=== PATIENT | female | born 1930 | race Caucasian/White ===

== ENCOUNTER → 2016-08-11 | Outpatient (CLI) | payer MEDICARE ==
[~2016-08-11] MED LIST: CIPRO 500MG TA500 MG PO; COUMADIN 2.5MG2.5 MG PO; COUMADIN 5MG TAB5 MG PO; DRISDOL50000 IU PO; ESCITALOPRAM10 M1 PO; EXELON4.6 MG/24 TD; FAMOTIDINE 20MG20 MG PO; FUROSEMIDE 40MG40 M1 PO; JANUVIA50 M1 PO; JANUVIA50 MG PO; K-DUR 20MEQ TA20 MEQ PO; LASIX40 MG PO; LEVOFLOXACIN PO; LISINOPRIL 10MG10 MG NG; LISINOPRIL 10MG10 MG PO; LISINOPRIL 5MG T5 MG PO; LISINOPRIL10 MG PO; LORTAB 5/500 501 TAB PO; MACROBID 100MG100 MG PO; MACROBID100 M3 PO; MIRALAX(PO17 GM/1 PA PO; NAMENDA XR28 MG PO; NORVASC 5MG. TAB5 MG PO; PERCOCET 5/3251 EACH PO; PLAVIX75 MG PO; PRAVASTATIN 40M40 MG PO; PRAVASTATIN20 MG PO; RISPERDAL0.5 MG PO; SYNTHROID 0.00.05 MG PO; TRAMADOL 50MG T50 MG PO; TRAMADOL50 M1 PO; TYLENOL325 MG PO; VIMOVO 20 MG-501 TCP PO; VITAMIN D32000 IU PO; [UNRECOGNIZED DRUG - OTHER] PO
--- NOTE | 2016-08-11 12:50 | RADIOLOGY REPORT PS360 ---
HIP RT 2-3V W/PELVIS IF PERFOR HISTORY: Follow-up fracture S/P HIP REPLACMENT COMPARISON: 07/21/2016 FINDINGS: Status post ORIF right intertrochanteric fracture. Gamma now with long intramedullary dilip is present in good position. There remains medial displacement of the lesser trochanter with overlying callus formation. Mild osteoarthritic change of the hip. No orthopedic complication. IMPRESSION: Healing right intertrochanteric fracture status post ORIF
== END ==
LOC: RAD 09:51
DX: Z47.1 Aftercare following joint replacement surgery (principal)

== ENCOUNTER → 2016-12-29 | Outpatient (CLI) | payer MEDICARE, MEDICAID ==
[~2016-12-29] MED LIST changes: +TYLENOL WITH CO1 TA1 PO
--- NOTE | 2016-12-29 14:35 | RADIOLOGY REPORT PS360 ---
WRIST-3 VIEWS-LT HISTORY: Follow-up fracture HEALING OF LEFT DISTAL RADIUS FX ORDERING PHYSICIAN: BILLY DENIS MD PATIENT AGE: 86 years COMPARISON: 12/16/2016 FINDINGS: Status post ORIF distal radial fracture with negative bone plate and multiple screws present. Study is obtained through cast. The fracture line is not well delineated. There is good alignment. There is a nondisplaced transverse fracture at the base of the ulnar styloid process unchanged. IMPRESSION: Good alignment status post ORIF distal radial fracture and nondisplaced ulnar styloid fracture
== END ==
LOC: RAD 11:31
DX: S52.542D Smith's fracture of left radius, subsequent encounter for closed fracture with routine healing (principal)

== ENCOUNTER 2017-04-27 12:37 | Emergency (ER) | payer MEDICARE, MEDICAID ==
[~2017-04-27] VITALS: Ht 154.9 cm; Wt 59.0 kg
[~2017-04-27 12:37] MED LIST changes: +VOLTAREN100 GM TP
[2017-04-27] MEDS ORDERED: JANUVIA25 MG PO (13:13)
[2017-04-27 13:19] LABS: URINE BILIRUBIN - DIPSTICK NEGATIVE (NEG); URINE BLOOD 1+ (NEG)
[2017-04-27 13:31] LABS: HEMOGLOBIN 13.2 g/dL (12.2-16.2); LYMPH # 0.6 K/mm3 (0.7-4.5); LYMPH % 5.2 % (10-50.0)
[2017-04-27 13:31] LABS: URINE SQUAMOUS CELLS OCC #/hpf (0-5)
--- NOTE | 2017-04-27 14:10 | Emergency Room Report ---
History of Present Illness Time Seen by [id number] Presenting Problem in Triage Pt arrived:Wheelchair Presenting Problem:PER PT DAUGHTER PT HAS PAIN IN R HIP AND EMIL KNEES ALONG WITH PAIN IN EMIL ARMS. DAUGHTER STATES PT IS WEAKER THAN NORMAL, STATES THIS IS HOW PT ACTS WHEN SHE HAS A UTI. PT IS ALERT AND ORIENTED, CAN ANSWER ALL QUESTIONS APPROPRIATELY. 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 N Clinical Suspician of Infection? N Mental Status: 1 - Regular (Normal Baseline) Sepsis Risk:Low Sepsis Risk Have you (or family members/close friends) recently traveled outside the [place]? N If Yes, where/when: Have you had exposure to infectious disease within the past month? N TB? Other? Specify: Source patient, RN notes reviewed, family, RN/MD Exam Limitations no limitations Comment This 86-year-old lady brought into the emergency room by her daughter with generalized joint pain, for the past 3-4 days. Because of the pain the patient has been avoiding to get out of bed and being less ambulatory than usual. She has a history of diabetes, which according to her daughter is "diet- controlled", and her PCP has taken her off the Januvia, as her most recent blood sugar tests have been within normal limits. ALLERGIES Coded Allergies: Sulfa (Sulfonamide Antibiotics) (Intermediate, I-HIVES 12/16/16) aspirin (Intermediate, UPSET STOMACH 12/16/16) Home Medications Active Scripts Risperidone (Risperdal) 0.5 MG PO QHS #30 TAB Prov: 07/08/16 Acetaminophen (Tylenol) 650 MG PO Q6HP PRN MILD PAIN OR FEVER #60 TAB Prov: 07/08/16 Diclofenac Sodium (Voltaren) 4 GM TP QIDP PRN knee pain #100 GM Prov: 03/27/17 Reported Medications MEMANTINE HCL (Namenda XR) 28 MG PO DAILY #30 CAP Escitalopram Oxalate 10 MG PO DAILY #30 TAB Rivastigmine (Exelon) 4.6 MG TD DAILY PRAVASTATIN SODIUM (Pravastatin Sodium) 40 MG PO DAILY Furosemide 40 MG PO PRN PRN FLUID #30 TAB Amlodipine Besylate (Norvasc) 1 TAB PO DAILY Levothyroxine Sodium (Synthroid 0.05MG) 0.05 MG PO DAILY LISINOPRIL (Lisinopril) 10 MG PO BID Sitagliptin Phosphate (Januvia 25MG) 25 MG PO DAILY-DM #90 History Medical History General CAD? No Angina: No NM: No Hypertension? Yes Hyperlipidemia? Yes CHF? No DVT? No PE? No COPD? No Asthma? No Anemia? No GERD? No Gastric ulcers? No GI Bleed? No Hernia? No Thyroid Problems? No Hypothyroidism? No CVA? No Seizures? No Diabetes? Yes Insulin Dependent: No Insulin Pump: No Home FSBS? No Renal Insuffiency? No End Stage Renal Disease? No UTI? Yes Stones? No BPH? No GB Disease: Yes Nephritic Syndrome? No Asplenia? No Hepatitis? No Sickle Cell Disease? No Arthritis? No Migraines? No Cataracts? Yes Glaucoma? No MRSA? No HIV? No TB? No Anxiety? No Depression? No Cancer? No More? No Immunization Hx DT/Tetanus 1-4 Years Ago Flu 2016-17FSN Pneumonia Received In Past Surgical Hx Previous Surgery?Y EXPLORATORY LAP TUBAL Hysterect Gallbladd L ROTATOR CUFF BILATERAL CATARACTS R HIP Family History Family Hx Diabetes Yes CAD Yes Hypertension Yes Hyperlipidemia Yes Cancer No TB No Social History Smoking Hx Smoker: Never Smoker Tobacco: No Alcohol Alcohol: No Review of Systems All Other Systems Reviewed and Negative Musculoskeletal joint pain, joint swelling Physical Exam Vital Signs Vital Signs Date Time Temp Pulse Resp B/P Pulse O2 O2 Flow FiO2 Ox Delivery Rate 04/27 1250 99.2 84 18 117/62 94 General Appearance normal appearance, WD/WN, no apparent distress, c/w mild dementia Respiratory Status Yes: trachea midline, chest symmetrical, non tender chest. No: respiratory distress. Lung Sounds bilateral: normal breath sounds, lungs clear. Cardiovascular normal exam, regular rate/rhythm, no peripheral edema, no gallop, no JVD, no murmur, no rub, normal peripheral pulses Gastrointestinal normal bowel sounds, normal exam, non tender, soft, no organomegaly Extremities PIP and DIP joints of the hands are swollen, tender, decreased range of motion due to pain. 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 No Comment Upon reevaluation patient appears medically stable, in no acute distress. Discussed benefits and risks of treating her arthritis with steroid versus and NSAIDs. Patient's age and comorbid factors I feel that steroids are better option, since we will be able to avoid any gastrointestinal side effects. Advised HER to call Dr. Perez's office and schedule a follow up appointment within a few days, next Monday or Monday. Her hyperglycemia noticed on her blood work collected today may be simply reactive to her pain and/or arthritis flareup. Dr. Perez will reevaluate patient a few days and determine if she needs to resume her Januvia, or not. Results/Orders Laboratory Tests 04/27/17 1315: Lactic Acid 1.3 04/27/17 1315: Creatine Kinase 24 L, CK-MB (CK-2) Rel Index 2.1, CK and CKMB Interp < 0.5, Troponin I < 0.02, ESR >120 H 04/27/17 1315: Sodium 136, Potassium 5.0, Chloride 101, Carbon Dioxide 24, BUN 24 H, Creatinine 0.9, Estimated Creat Clear 43 L, Estimated GFR (MDRD) 60, Glucose 267 H, Calcium 9.7, Total Bilirubin 0.6, AST 17, ALT 26, Alkaline Phosphatase 115, Total Protein 7.8, Albumin 3.3 L, Globulin 4.5 H, Albumin/Globulin Ratio 0.7 L, WBC 11.7 H, RBC 4.20, Hgb 13.2, Hct 40.1, MCV 95.3, RDW 12.5, Plt Count 220, MPV 8.0, Gran % 88.0 H, Gran # 10.3 H, Total Counted Pending, Lymphocytes % 5.2 L, Monocytes % 4.2, Eosinophils % 2.3, Basophils % 0.2, Neutrophils Pending, Lymphocytes (Manual) Pending, Lymphocytes # 0.6 L, Monocytes # 0.5, Eosinophils # 0.3, Basophils # 0.0, Platelet Estimate Pending, PUBS MCHC 33.0, MCH 31.5 H 04/27/17 1305: Urine Color YELLOW, Urine Appearance CLEAR, Urine pH 5.5, Ur Specific [place] >= 1.030, Urine Protein 1+ H, Urine Ketones NEGATIVE, Urine Blood 1+ H, Urine Nitrate NEGATIVE, Urine Bilirubin NEGATIVE, Urine Urobilinogen 0.2, Ur Leukocyte Esterase NEGATIVE, Urine RBC OCC, Urine WBC 3-5, Ur Squamous Epith Cells OCC, Urine Bacteria 1+, Urine Mucus OCC, Urine Glucose 2+ H Current Medication Orders Sig/Melony Start time Last Medication Dose Route Stop Time Status Admin Methylprednisolone 0 .STK-MED ONE 04/27 1414 DC Acetate IM Methylprednisolone 40 MG ONCE ONE 04/27 1400 DC 04/27 Acetate IM 04/27 1401 1416 Sodium Chloride 10 ML PRN PRN 04/27 1315 AC IV 04/28 1314 Orders Procedure Date/time Status C-REACTIVE PROTEIN 04/27 1338 Complete SED RATE 04/27 1337 Complete 12 LEAD EKG-RODERICK (INITIAL) 04/27 1330 Active ELECTROCARDIOGRAM REQUEST 04/27 1330 Active CARDIAC ENZYMES 04/27 1330 Complete DIFFERENTIAL-WBC 04/27 1315 Active IV SALINE LOCK 04/27 1314 Active CULTURE, BLOOD 04/27 1314 Active URINALYSIS/COMPLETE 04/27 1314 Complete LACTIC ACID 04/27 1314 Complete CBC WITH AUTO DIFF 04/27 1314 Active CHEM 12 PROFILE 04/27 1314 Complete 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 of ischemic chgs, no ectopy, normal QRS, normal PA, no EKG for comparison, non-spec. ST/Twave chgs, ST elevation, ST depression, LBBB, RBBB, ectopy, abnormal Q waves Departure Departure Time of Disposition 1407 Disposition DC Home or Self Care(routine) Clinical Impression Primary Impression: Osteoarthritis Qualifiers: Osteoarthritis location: unspecified site Osteoarthritis type: unspecified Qualified Code: M19.90 - Unspecified osteoarthritis, unspecified site Secondary Impressions: Hyperglycemia Condition STABLE Referrals Kyle Perez MD (Family): Today after leaving ER Please call Dr Perez's office today and schedule a follow up appointment for next Monday or Monday. Patient Instructions DI for Hyperglycemia -- Adult, DI for Osteoarthritis Additional Instructions Please follow-up with Dr. Perez within 3-5 days if no better. Your blood sugar may be higher than usual after receiving the steroid shot today , while in the ER. Discharge Counseling Counseled pt/family regarding diagnosis, test results, medications/RX, home care, follow up needs Comment Please follow-up with Dr. Perez within 3-5 days if no better. Your blood sugar may be higher than usual after receiving the steroid shot today , while in the ER. ED Critical Care Critical Care No at 1431
[2017-04-27 14:21] LABS: NEUTROPHILS 91 % (42-76)
[2017-04-27 14:33] VITALS: BP 110/54
== END 2017-04-27 14:30 | disposition home or self-care (01) ==
LOC: UTC 12:37 → ER 12:39
PROVIDERS: Emergency Medicine
DX: M16.0 Bilateral primary osteoarthritis of hip (principal); M17.0 Bilateral primary osteoarthritis of knee; I10 Essential (primary) hypertension; E11.9 Type 2 diabetes mellitus without complications
CPT/HCPCS: J1030

== ENCOUNTER 2017-04-30 23:31 | Inpatient (IN) | payer MEDICARE, MEDICAID ==
[~2017-04-30] VITALS: Ht 154.9 cm; Wt 63.5 kg
[~2017-04-30 23:31] MED LIST changes: +JANUVIA25 MG PO
[2017-05-01] VITALS (9 sets, daily range): BP systolic 119–146; BP diastolic 62–87
--- NOTE | 2017-05-01 00:28 | Emergency Room Report ---
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 N Clinical Suspician of Infection? N Mental Status: 2 - Mildly Altered Sepsis Risk:Possible Sepsis Risk Have you (or family members/close friends) recently traveled outside the [place]? N If Yes, where/when: Have you had exposure to infectious disease within the past month? N TB? Other? Specify: Source RN notes reviewed Exam Limitations no limitations Comment This is an 87-year-old female patient arriving to the emergency room by EMS with a chief complaint of altered mental status. The patient was seen here just a few days ago, last week , with body aches and several joint aches. She received a Depo-Medrol shot and was discharged home. She is returning today with confusion, hallucinations. Daughter has been checking her sugar at home which has been in the 300s. She is a nondiabetic, currently off januvia, as PCP felt she is "diet-controlled". ALLERGIES Coded Allergies: Sulfa (Sulfonamide Antibiotics) (Intermediate, I-HIVES 12/16/16) aspirin (Intermediate, UPSET STOMACH 12/16/16) Home Medications Active Scripts Risperidone (Risperdal) 0.5 MG PO QHS #30 TAB Prov: 07/08/16 Acetaminophen (Tylenol) 650 MG PO Q6HP PRN MILD PAIN OR FEVER #60 TAB Prov: 07/08/16 Diclofenac Sodium (Voltaren) 4 GM TP QIDP PRN KNEE PAIN #100 GM Prov: 03/27/17 Reported Medications MEMANTINE HCL (Namenda XR) 28 MG PO DAILY #30 CAP Escitalopram Oxalate 10 MG PO DAILY #30 TAB Rivastigmine (Exelon) 4.6 MG TD DAILY Amlodipine Besylate (Norvasc) 5 MG PO DAILY POTASSIUM CHL (Potassium Chloride) 20 MEQ PO BID PRAVASTATIN SODIUM (Pravastatin Sodium) 40 MG PO DAILY Furosemide 40 MG PO PRN PRN FLUID #30 TAB Levothyroxine Sodium (Synthroid 0.05MG) 0.05 MG PO DAILY LISINOPRIL (Lisinopril) 10 MG PO BID Sitagliptin Phosphate (Januvia 25MG) 25 MG PO DAILY-DM #90 History Medical History General CAD? No Angina: No [place]: No Hypertension? Yes Hyperlipidemia? Yes CHF? No DVT? No PE? No COPD? No Asthma? No Anemia? No GERD? No Gastric ulcers? No GI Bleed? No Hernia? No Thyroid Problems? No Hypothyroidism? No CVA? No Seizures? No Diabetes? Yes Insulin Dependent: No Insulin Pump: No Home FSBS? No Renal Insuffiency? No End Stage Renal Disease? No UTI? Yes Stones? No BPH? No GB Disease: Yes Nephritic Syndrome? No Asplenia? No Hepatitis? No Sickle Cell Disease? No Arthritis? No Migraines? No Cataracts? Yes Glaucoma? No MRSA? No HIV? No TB? No Anxiety? No Depression? No Cancer? No More? No Immunization Hx Ped.Immunizations UTD Yes DT/Tetanus 1-4 Years Ago Flu 2015-FSN Pneumonia Received In Past Surgical Hx Previous Surgery?Y EXPLORATORY LAP TUBAL Hysterect Gallbladd L ROTATOR CUFF BILATERAL CATARACTS R HIP LEFT WRIST FX REPAIR Family History Family Hx Diabetes Yes CAD Yes Hypertension Yes Hyperlipidemia Yes Cancer No TB No Social History Smoking Hx Smoker: Never Smoker Tobacco: No Are you/the child exposed to second-hand smoke: No Alcohol Alcohol: No Review of Systems All Other Systems Reviewed and Negative Psychiatric/Neurological weakness, other (confusion) Physical Exam Vital Signs Vital Signs Date Time Temp Pulse Resp B/P Pulse O2 O2 Flow FiO2 Ox Delivery Rate 05/01 0615 98.3 81 18 139/71 94 ROOM AIR 05/01 0558 97.9 86 20 137/77 92 05/01 0546 100.2 86 20 137/77 92 05/01 0335 100.2 86 20 154/76 92 05/01 0241 88 20 154/81 93 05/01 0131 100.2 85 18 160/80 92 05/01 0038 98.8 86 20 145/73 94 05/01 0001 101.1 87 20 93 General Appearance normal appearance, WD/WN, no apparent distress, confused, hallucinating Neck normal inspection, non-tender, supple, full range of motion Respiratory Status Yes: trachea midline, chest symmetrical, non tender chest. No: respiratory distress. Lung Sounds bilateral: normal breath sounds, lungs clear. 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 No Comment Case discussed with Dr. Perez, who is the patient's presentation and findings, agreeable with hospitalization at this point. Will start patient on IV antibiotics, and cover her with a regular insulin per sliding scale. Results/Orders Laboratory Tests 05/01/17 0338: POC Glucose 334 *H 05/01/17 0334: Lactic Acid Cancelled 05/01/17 0215: Lactic Acid 1.1, Urine Color YELLOW, Urine Appearance CLEAR, Urine pH 5.5, Ur Specific [place] 1.025, Urine Protein 1+ H, Urine Ketones TRACE H, Urine Blood TRACE-INTACT, Urine Nitrate NEGATIVE, Urine Bilirubin NEGATIVE, Urine Urobilinogen 0.2, Ur Leukocyte Esterase NEGATIVE, Urine RBC 3-5, Urine WBC 5-10, Urine Renal Cells 5-10, Urine Bacteria 4+, Urine Glucose 2+ H 05/01/17 0110: Sodium 135 L, Potassium 4.6, Chloride 102, Carbon Dioxide 25, BUN 29 H, Creatinine 0.9, Estimated Creat Clear 43 L, Estimated GFR (MDRD) 60, Glucose 337 H, Calcium 9.8, Total Bilirubin 0.9, AST 31, ALT 42, Alkaline Phosphatase 185 H, Total Protein 7.5, Albumin 2.3 L, Globulin 5.2 H, Albumin/Globulin Ratio 0.4 L, WBC 13.3 H, RBC 3.62 L, Hgb 11.4 L, Hct 35.9 L, MCV 99.0 H, RDW 12.6, Plt Count 269, MPV 8.4, Gran % 91.2 H, Gran # 12.1 H, Total Counted 100, Lymphocytes % 3.5 L, Monocytes % 3.8, Eosinophils % 1.3, Basophils % 0.2, Neutrophils 90 H, Band Neutrophils 5, Lymphocytes (Manual) 5 L, Lymphocytes # 0.5 L, Monocytes # 0.5, Eosinophils # 0.2, Basophils # 0.0, Hypersegmented Polys FEW, Platelet Estimate NORMAL, Hypochromasia 1+, Macrocytosis 1+, Rouleaux 2+, PUBS MCHC 31.8, MCH 31.5 H Current Medication Orders Sig/Melony Start time Last Medication Dose Route Stop Time Status Admin Azithromycin 500 MG 2100 05/01 2100 AC Sodium Chloride 250 ML IV Ceftriaxone Sodium 1 GM 1300 05/01 1300 AC Sodium Chloride 50 ML IV Diagnostic Test (Pha) 1 EACH W/MEALS&HS 05/01 0700 AC 05/01 FS 06/30 0659 0711 Insulin Human [rDNA See Dose W/MEALS&HS 05/01 07 DC origin] Insts (1) SC Azithromycin 500 MG ONCE ONE 05/01 0415 DC 05/01 Sodium Chloride 250 ML IV 05/01 0514 0536 Ceftriaxone Sodium 1 GM ONCE ONE 05/01 0415 DC 05/01 Sodium Chloride 50 ML IV 05/01 0444 0523 Insulin Human Regular 2 UNITS ONCE ONE 05/01 0400 DC 05/01 IVP 05/01 0401 0520 Acetaminophen 0 .STK-MED ONE 05/01 0246 DC PO Acetaminophen 0 .STK-MED ONE 05/01 0245 DC PO Acetaminophen 1,000 MG ONCE ONE 05/01 0145 DC 05/01 PO 05/01 0146 0200 Dose Instructions: (1)Insulin Human [rDNA origin]: SEE ADMIN CRITERIA FOR LOW INTENSITY SS Orders Procedure Date/time Status DIET-2000 CALORIE ADA 05/01 B Active Decision to admit 05/01 0415 Active FINGERSTICK BLOOD SUGAR 05/01 0338 Complete FSBS REQUEST BY CARE AREA 05/01 0334 Active CHEM 12 PROFILE 05/01 0329 Complete CULTURE, URINE 05/01 0215 Active CULTURE, BLOOD 05/01 0143 Active LACTIC ACID 05/01 0143 Complete DIFFERENTIAL-WBC 05/[address] HEAD REQ 05/01 0028 Active URINARY CATHETER INSERT 05/01 0028 Active CBC WITH AUTO DIFF 05/01 0028 Complete URINALYSIS/COMPLETE 05/01 0027 Complete ADMIT PATIENT 05/01 UNK Active PULSE OXIMETRY REQUEST 05/01 UNK Active VITAL SIGNS 05/01 UNK Active 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 of ischemic chgs, no ectopy, normal QRS, normal VT, normal EKG, no EKG for comparison, non-spec. ST/Twave chgs, ST elevation, ST depression, LBBB, RBBB, ectopy, abnormal Q waves XRAY/CT/US XRAY/CT/US 1 XRAY chest XR interpretation by reviewed by me Xray Results abnormal, normal heart size, normal lung inflation cameron Comment RIGHT lower lung infiltrate XRAY/CT/US [address] interpretation by discussed w/radiologist CT Results no fracture seen, no ICH, see radiologist's report from virtual radiology Departure Departure Time of Disposition 0411 Disposition Still a Patient Clinical Impression Primary Impression: Change in mental status Secondary Impressions: Pneumonia Condition STABLE ED Critical Care Critical Care Yes Time spent 30-74 min Vital system(s) involved: Central Nervous System I was present at bedside for Coordinating pt's care, Interpreting EKGs/Strips , During my initial exam, Reviewing lab results, Reviewing old records, Discussing pt condition, For re-examinations, Examining radiographs If Critical Care minutes are documented, the time involved in the performance of seperately reportable procedures was not counted toward critical care time documented. I directly delivered medical care to this critically ill and/or injured patient. Timely evaluation and treatment was necessary to address the significant organ system(s) dysfunction present in this patient. at 1008
[2017-05-01 01:15] LABS: LYMPH # 0.5 K/mm3 (0.7-4.5); LYMPH % 3.5 % (10-50.0)
[2017-05-01 01:19] LABS: HEMOGLOBIN 11.4 g/dL (12.2-16.2)
[2017-05-01 01:35] LABS: NEUTROPHILS 90 % (42-76)
[2017-05-01 02:16] LABS: URINE BILIRUBIN - DIPSTICK NEGATIVE (NEG); URINE BLOOD TRACE-INTACT (NEG)
--- NOTE | 2017-05-01 07:26 | RADIOLOGY REPORT PS360 ---
CT HEAD WITHOUT CONTRAST CT BONE WINDOWS included ORDERING PHYSICIAN : Gigi Almanza MD PATIENT AGE: 87 years GENDER: Female PROCEDURE: Routine axial images headwithout contrast. Brain & bone windows HISTORY: AMS COMPARISON: Previous CT head - without contrast. FINDINGS: No significant change since 2013. Prominent chronic small vessel deep white matter of low-density ischemic/gliotic changes are seen at the periventricular and subcortical deep white matter regions of the cerebral hemispheres bilateral.. Similar to previous study. No territorial infarct is evident. There is associated diffuse cerebral atrophy. On no subdural collections. No mass lesion. The posterior fossa appears stable and satisfactory. -With calcification at the internal carotid arteries bilaterally. Falx calcification anteriorly again noted and unchanged. No skull lesion. Skull intact. Generous thickness. Minimal inhomogeneous soft tissue density at throughout the small left sphenoid inhomogeneous mucoid material. Less likely fungal elements. The remainder of the partially visualized paranasal sinuses are fairly clear with only borderline mucosal thickening at ethmoid air cells... Mastoid air cells, middle ear & IACs are unremarkable. IMPRESSION: No acute intracranial findings. No significant change since December 2013. No hemorrhage. No territorial infarct. Prominent Chronic small vessel deep white matter ischemic changes cerebral hemispheres bilaterally again noted
--- NOTE | 2017-05-01 07:33 | RADIOLOGY REPORT PS360 ---
CHEST-PORTABLE HISTORY: fever, coughfever, cough. Patient Age: 87 years: Female Ordering Physician: Kyle Perez MD TECHNIQUE: AP portable upright chest. COMPARISON : Previous chest film 12/12/2016 as well as November [address] chest March 2015 FINDINGS Poor inspiration particularly compared to previous 2008 film. This accentuates lung markings bilaterally. The diaphragm is only down to the anterior fourth rib on right. . Right lung. There is some linear atelectasis towards the right base with prominent markings right infrahilar region. Most likely atelectasis but difficult to exclude early infiltrate. Left lung: there is subtle additional density projects over the anterior fourth rib and likely atelectasis but difficult to exclude scant infiltrate. The heart is upper normal in size with sameer and mediastinal structures satisfactory. The before meals projection of accentuates the mediastinum particularly the right paratracheal region appears slightly generous but this is most likely due to tortuous innominate vessel similar previous chest film from 2008 [address] a CT chest from 03/15/2015. Left shoulder replacements again noted. Chest wall otherwise unremarkable. IMPRESSION: Poor aspiration crowds markings and limits the study. Bibasilar atelectasis most likely accounts for the mildly accentuated markings at lung bases and particularly right infrahilar area. However Difficult to exclude early infiltrate in these areas If respiratory symptoms progress consider follow-up 2 view CXR
--- NOTE | 2017-05-01 07:33 | PHARMACY CLINIC NOTE ---
Patient Demographics Patient Demographics Admission date: 05/01/17 Date: 05/01/17 Time: 0733 Allergies Coded Allergies: Sulfa (Sulfonamide Antibiotics) (Intermediate, I-HIVES 12/16/16) aspirin (Intermediate, UPSET STOMACH 12/16/16) HEIGHT- FT: 5 IN: 1.00 K.717 VTE General Information Labs: Laboratory Tests 05/01 0110 Hematology Hgb (12.2 - 16.2 g/dL) 11.4 L Hct (37.0 - 47.0 %) 35.9 L Plt Count (142 - 424 K/mm3) 269 Disclaimer The following section includes nursing documentation that has been pulled in for pharmacy review. Patient's VTE score: 4 Patient's VTE Risk: LOW RISK Clinical trial participant? No VTE prophylaxis NQF [id number] VTE prophylaxis ordered? Yes Type of prophylaxis/treatment: WILLIAMS at 0733
--- NOTE | 2017-05-01 07:54 | HISTORY AND PHYSICAL REPORT ---
Demographics: Admit date: 05/01/17 Chief complaint: Mental status change/fever PRIMARY DIAGNOSIS: AMS, PNEUMONIA Allergies: Coded Allergies: Sulfa (Sulfonamide Antibiotics) (Intermediate, I-HIVES 12/16/16) aspirin (Intermediate, UPSET STOMACH 12/16/16) History of present illness: History of present illness: 87-year-old white female with history of multi-vascular dementia with behavioral disturbances who's been well managed at home who over the past 3 or 4 days has had increasing mental status changes and some confusion with some aberrant behavior with a cough and fever. Came to the emergency department. Noted to be significantly hyperglycemic and have infiltrates on chest x-ray. Admitted to hospital for IV antibiotics forpneumonia. Past medical history: Family HX Diabetes Yes CAD Yes Hypertension Yes Hyperlipidemia Yes Cancer No TB No Immunization HX Ped.Immunizations UTD Yes DT/Tetanus 1-4 Years Ago Flu 2015-FSN Pneumonia Received In Past TB Test in last year No General CAD? No Angina: No PR: No Hypertension? Yes Hyperlipidemia? Yes CHF? No DVT? No PE? No COPD? No Asthma? No Anemia? No GERD? No Gastric ulcers? Yes GI Bleed? No Hernia? No Thyroid Problems? No Hypothyroidism? No CVA? No Seizures? No Diabetes? Yes Insulin Dependent: No Insulin Pump: No Home FSBS? No Renal Insuffiency? No UTI? Yes Stones? No BPH? No GB Disease: Yes Nephritic Syndrome? No Asplenia? No Hepatitis? No Sickle Cell Disease? No Arthritis? Yes Migraines? Yes Cataracts? Yes Glaucoma? No MRSA? No HIV? No TB? No Anxiety? No Depression? Yes Cancer? No More? Yes Additional hx: TIA Past Surgical HX Previous Surgery?Y EXPLORATORY LAP TUBAL Hysterect Gallbladd L ROTATOR CUFF BILATERAL CATARACTS R HIP LEFT WRIST FX REPAIR Current home meds: Active Scripts Risperidone (Risperdal) 0.5 MG PO QHS #30 TAB Prov: 07/08/16 Acetaminophen (Tylenol) 650 MG PO Q6HP PRN MILD PAIN OR FEVER #60 TAB Prov: 07/08/16 Diclofenac Sodium (Voltaren) 4 GM TP QIDP PRN knee pain #100 GM Prov: 03/27/17 Reported Medications MEMANTINE HCL (Namenda XR) 28 MG PO DAILY #30 CAP Escitalopram Oxalate 10 MG PO DAILY #30 TAB Rivastigmine (Exelon) 4.6 MG TD DAILY PRAVASTATIN SODIUM (Pravastatin Sodium) 40 MG PO DAILY Furosemide 40 MG PO PRN PRN FLUID #30 TAB Amlodipine Besylate (Norvasc) 1 TAB PO DAILY Levothyroxine Sodium (Synthroid 0.05MG) 0.05 MG PO DAILY LISINOPRIL (Lisinopril) 10 MG PO BID Sitagliptin Phosphate (Januvia 25MG) 25 MG PO DAILY-DM #90 Social Hx: Smoking HX Tobacco No Are you/the child exposed to second-hand smoke: No Alcohol Alcohol: No Hx of Drug Use Drug Use? No Patien't marital status is Patient's support system is excellent Comment: Lives with daughter in her residence Review of systems: Constitutional fever, malaise, weakness. Respiratory cough, shortness of breath. Cardiovascular No no symptoms reported Gastrointestinal/Abdominal nausea, poor appetite, poor fluid intake Genitourinary No: no symptoms reported. Musculoskeletal No: no symptoms reported. Neurological Yes: weakness. Exam: Lab data for last 24 hours: Laboratory Tests 05/01/17 0711: POC Glucose 451 *H 05/01/17 0338: POC Glucose 334 *H 05/01/17 0215: Lactic Acid 1.1, Urine Color YELLOW, Urine Appearance CLEAR, Urine pH 5.5, Ur Specific [place] 1.025, Urine Protein 1+ H, Urine Ketones TRACE H, Urine Blood TRACE-INTACT, Urine Nitrate NEGATIVE, Urine Bilirubin NEGATIVE, Urine Urobilinogen 0.2, Ur Leukocyte Esterase NEGATIVE, Urine RBC 3-5, Urine WBC 5-10, Urine Renal Cells 5-10, Urine Bacteria 4+, Urine Glucose 2+ H 05/01/17 0110: Sodium 135 L, Potassium 4.6, Chloride 102, Carbon Dioxide 25, BUN 29 H, Creatinine 0.9, Estimated Creat Clear 43 L, Estimated GFR (MDRD) 60, Glucose 337 H, Calcium 9.8, Total Bilirubin 0.9, AST 31, ALT 42, Alkaline Phosphatase 185 H, Total Protein 7.5, Albumin 2.3 L, Globulin 5.2 H, Albumin/Globulin Ratio 0.4 L, WBC 13.3 H, RBC 3.62 L, Hgb 11.4 L, Hct 35.9 L, MCV 99.0 H, RDW 12.6, Plt Count 269, MPV 8.4, Gran % 91.2 H, Gran # 12.1 H, Total Counted 100, Lymphocytes % 3.5 L, Monocytes % 3.8, Eosinophils % 1.3, Basophils % 0.2, Neutrophils 90 H, Band Neutrophils 5, Lymphocytes (Manual) 5 L, Lymphocytes # 0.5 L, Monocytes # 0.5, Eosinophils # 0.2, Basophils # 0.0, Hypersegmented Polys FEW, Platelet Estimate NORMAL, Hypochromasia 1+, Macrocytosis 1+, Rouleaux 2+, PUBS MCHC 31.8, MCH 31.5 H Microbiology 05/01 334 BLOOD: Anaerobic Blood Culture - CAN Cancelled: DUPLICATE ORDER 05/01 334 BLOOD: Aerobic Blood Culture - CAN Cancelled: DUPLICATE ORDER 05/01 334 BLOOD: Anaerobic Blood Culture - CAN Cancelled: DUPLICATE ORDER 05/01 334 BLOOD: Aerobic Blood Culture - CAN Cancelled: DUPLICATE ORDER 05/01 300 BLOOD: Anaerobic Blood Culture - RECD 05/01 300 BLOOD: Aerobic Blood Culture - RECD 05/01 030 BLOOD: Anaerobic Blood Culture - RECD 05/01 300 BLOOD: Aerobic Blood Culture - RECD 05/01 0215 URINE CATH: Urine Culture - RECD Admission vital signs: 1ST Vital Signs Result Date Time Pulse Ox 93 05/01 0001 Temp 101.1 05/01 0001 Pulse 87 05/01 0001 Resp 20 05/01 0001 B/P 145/73 05/01 0038 O2 Delivery ROOM AIR 05/01 0615 Additional information: Aged white female lying in bed, no respiratory distress noted. Equal lung excursion with rhonchi in both bases. Heart rate regular. Previously noted holosystolic murmur. Abdomen soft and nontender, good capillary refill. Minimally responsive to verbal commands. No focal neurologic deficit noted on observation. Plan: Problem List 1. Delirium 2. Senile dementia 3. Change in mental status 4. Pneumonia 5. Hyperglycemia Plan: Admit to hospital. IV antibiotics. Sliding scale insulin for hyperglycemia. No evidence of acidosis or serum ketones. Cautiously restart some of her home medications. at 0754
[2017-05-01] MEDS ORDERED: POTASSIUM CHLO20 ME2 PO (08:07)
[2017-05-02] VITALS (25 sets, daily range): BP systolic 99–151; BP diastolic 60–76
[2017-05-02 07:51] LABS: HEMOGLOBIN 10.8 g/dL (12.2-16.2)
[2017-05-02 07:52] LABS: LYMPH # 0.6 K/mm3 (0.7-4.5); LYMPH % 5.3 % (10-50.0)
--- NOTE | 2017-05-02 08:05 | ACUTE CARE PROGRESS NOTE (QUA) ---
Progress Notes Subjective Date 05/02/17 Time 0750 Note Patient is sleeping, awakens easily to light tough. Some improvement of mental status noted this morning. Alert and disoriented. Follows simple commands. 2/6 holosystolic murmur, no edema, pulses 2+. Rhonchi bilateral bases. Abdomen soft and non-tender Patient/family reports: no complaints Nursing reports: no complaints Objective Findings Last VS-Temp:99.6 B/P:151/72 Pulse:77 Resp:22 SaO2:94 ROOM AIR Last weight lbs:136 oz:1 K.717 Method:Bed Scales Reviewed: medications, vital signs, lab results, radiology report Assessment/Plan Problem List 1. Delirium 2. Senile dementia 3. Change in mental status 4. Pneumonia 5. Hyperglycemia Patient condition Improving Plan: continue current care This inpt stay is expected to cross 2 MNs from start of care Yes Comments: Continued to have some low grade temps through the night. WBC has improved, noted at 12 this morning. Mental status slowly improving. Continue IV antibiotics and duonebs. Will consider PT/OT consult later today. at 0806
[2017-05-02 09:54] LABS: NEUTROPHILS 89 % (42-76)
--- NOTE | 2017-05-02 13:38 | CONSULT NOTE ---
Standard Demographics Patient Demo Date of Consultation: 05/02/17 Referring Provider: Kyle Perez MD Reason for Consultation: A.fib with RVR PRIMARY DIAGNOSIS: AMS, PNEUMONIA Problem list Problem list: 1. Parkinson's 2. Dementia 3. DM, diet controlled 4. History of CHF many years ago 5. HTN 6. Hyperlipidemia 7. Hypothyroidism History of present illness: History of present illness: 87-year-old white female with history of multi-vascular dementia with behavioral disturbances who's been well managed at home who over the past 3 or 4 days has had increasing mental status changes and some confusion with some aberrant behavior with a cough and fever. Came to the emergency department. Noted to be significantly hyperglycemic and have infiltrates on chest x-ray. Admitted to hospital for IV antibiotics forpneumonia. The above per Dr. Perez Daughter is in the room and relates no complaint of chest pain or history of atrial fibrillation in the past. Remote history of treatment for congestive heart failure but no symptoms recently. Cardiology consulted for evaluation and recommendations regarding new onset atrial fibrillation with a rapid ventricular response today. Patient has been started on IV diltiazem. An additional bolus was given earlier today with mild improvement in heart rate. Past Medical History: General: Hypertension Yes CVA No Seizures No TB No COPD No Asthma No Diabetes Yes Insulin Dependent No Insulin Pump No Angina No DC No Hyperlipidemia Yes Urinary Yes Cancer No Rheumatic H.D. No Ulcers Yes MRSA No GB Disease Yes Other OSTEOPOROSIS Additional hx TIA Past Surgical HX: Previous Surgery?Y EXPLORATORY LAP TUBAL Hysterect Gallbladd L ROTATOR CUFF BILATERAL CATARACTS R HIP LEFT WRIST FX REPAIR Allergies Coded Allergies: Sulfa (Sulfonamide Antibiotics) (Intermediate, I-HIVES 12/16/16) aspirin (Intermediate, UPSET STOMACH 12/16/16) Home medications: Active Scripts Risperidone (Risperdal) 0.5 MG PO QHS #30 TAB Prov: 07/08/16 Acetaminophen (Tylenol) 650 MG PO Q6HP PRN MILD PAIN OR FEVER #60 TAB Prov: 07/08/16 Diclofenac Sodium (Voltaren) 4 GM TP QIDP PRN KNEE PAIN #100 GM Prov: 03/27/17 Reported Medications MEMANTINE HCL (Namenda XR) 28 MG PO DAILY #30 CAP Escitalopram Oxalate 10 MG PO DAILY #30 TAB Rivastigmine (Exelon) 4.6 MG TD DAILY Amlodipine Besylate (Norvasc) 5 MG PO DAILY POTASSIUM CHL (Potassium Chloride) 20 MEQ PO BID PRAVASTATIN SODIUM (Pravastatin Sodium) 40 MG PO DAILY Furosemide 40 MG PO PRN PRN FLUID #30 TAB Levothyroxine Sodium (Synthroid 0.05MG) 0.05 MG PO DAILY LISINOPRIL (Lisinopril) 10 MG PO BID Sitagliptin Phosphate (Januvia 25MG) 25 MG PO DAILY-DM #90 Current Medications: Current Medications Amlodipine Besylate 5 MG DAILY PO (CAN) Levothyroxine Sodium 0.05 MG DAILY PO Azithromycin 500 MG 2100 IV Sodium Chloride 250 ML Lisinopril 10 MG BID PO (CAN) Risperidone 0.5 MG QHS PO Digoxin 0.25 MG Q6 IV (UNV) Digoxin 0 .STK-MED ONE .ROUTE (DC) Ceftriaxone Sodium 1 GM 1300 IV Sodium Chloride 50 ML Diagnostic Test (Pha) 1 EACH W/MEALS&HS FS Insulin Human [rDNA origin] SEE ADMIN CRITERIA W/MEALS&HS SC Insulin Human [rDNA origin] 0 .STK-MED ONE SC (DC) Diltiazem HCl 15 MG ONCE ONE IV (DC) Diltiazem HCl 0 .STK-MED ONE IV (DC) Acetaminophen 650 MG Q6HP PRN PO Diltiazem HCl 10 MG ONCE ONE IV (DC) Diltiazem HCl 100 MG .Q20H IV (DC) Sodium Chloride 100 ML Diltiazem HCl 10 MG ONCE ONE IV (DC) Diltiazem HCl 100 MG .Q20H IV Sodium Chloride 100 ML Sodium Chloride 10 ML PRN PRN IV Diltiazem HCl 0 .STK-MED ONE IV (DC) Lisinopril 10 MG BID PO (DC) Lisinopril 0 .STK-MED ONE .ROUTE (DC) Acetaminophen 0 .STK-MED ONE PO (DC) Insulin Human [rDNA origin] 0 .STK-MED ONE SC (DC) Acetaminophen 650 MG Q6HP PRN PO (DC) Acetaminophen 0 .STK-MED ONE PO (DC) Azithromycin 500 MG 2100 IV Sodium Chloride 250 ML Risperidone 0.5 MG QHS PO (DC) Insulin Human [rDNA origin] 0 .STK-MED ONE SC (DC) Ceftriaxone Sodium 1 GM 1300 IV (DC) Sodium Chloride 50 ML Insulin Human [rDNA origin] SEE ADMIN CRITERIA W/MEALS&HS SC (DC) Amlodipine Besylate 5 MG DAILY PO (DC) Levothyroxine Sodium 0.05 MG DAILY PO (DC) Sodium Chloride 10 ML PRN PRN IV (DC) Diagnostic Test (Pha) 1 EACH W/MEALS&HS FS (DC) Immunization HX Ped.Immunizations UTD Yes DT/Tetanus 1-4 Years Flu 2015-FSN Pneumonia RECEIVED IN PAST TB Test in last year No Family history Family HX Family Hx Insignificant No Diabetes Yes CAD Yes Hypertension Yes Hyperlipidemia Yes Cancer No TB No Social Hx: Smoking HX Tobacco No Are you/the child exposed to second-hand smoke: No Alcohol Alcohol: No Hx of Drug Use Drug Use? No Review of systems: Constitutional see HPI. Respiratory cough. Cardiovascular palpitations Gastrointestinal/Abdominal No no symptoms reported Genitourinary No: no symptoms reported. Musculoskeletal No: no symptoms reported. Neurological Yes: see HPI. Exam: Admission Vital Signs: 1ST Vital Signs Result Date Time Pulse Ox 93 05/01 0001 Temp 101.1 05/01 0001 Pulse 87 05/01 0001 Resp 05/01 0001 B/P 145/73 05/01 0038 O2 Delivery ROOM AIR 05/01 0615 Last Vital Signs: Vital Signs Result Date Time B/P 125/68 05/02 1130 Pulse 136 05/02 1130 Pulse Ox 93 05/02 1130 O2 Delivery ROOM AIR 05/02 1130 Temp 99.9 05/02 1130 Resp 05/02 1130 Exam General appearance: patient is sleeping. Due to dementia she was not awakened for questioning. Cardiovascular: irregularly irregular, tachycardia Respiratory: poor effort with no appreciable rales or wheezing anteriorly. ABD: soft Extremities: no peripheral edema Neuro: patient is sleeping. Laboratory data: Laboratory Tests 05/02/17 1156: POC Glucose 238 H 05/02/17 0935: Creatine Kinase 8 L, CK-MB (CK-2) Rel Index 6.3 H, CK and CKMB Interp < 0.5, Troponin I < 0.02 05/02/17 0630: Sodium 138, Potassium 4.1, Chloride 101, Carbon Dioxide 26, BUN 29 H, Creatinine 0.8, Estimated Creat Clear 50, Estimated GFR (MDRD) 68, Glucose 243 H, Calcium 9.4, WBC 12.0 H, RBC 3.60 L, Hgb 10.8 L, Hct 33.9 L, MCV 94.2, RDW 13.1, Plt Count 258, Gran % 92.0 H, Gran # 11.0 H, Total Counted 100, Lymphocytes % 5.3 L, Monocytes % 2.7, Neutrophils 89 H, Lymphocytes (Manual) 2 L, Lymphocytes # 0.6 L, Monocytes (Manual) 7, Monocytes # 0.3, Eosinophils # ( Manual) 2, Platelet Estimate NORMAL, PUBS MCHC 31.9, MCH 30.0 05/01/17 2019: POC Glucose 303 *H 05/01/17 1701: POC Glucose 250 H 05/01/17 1144: POC Glucose 194 H 05/01/17 0711: POC Glucose 451 *H 05/01/17 0338: POC Glucose 334 *H 05/01/17 0215: Lactic Acid 1.1, Urine Color YELLOW, Urine Appearance CLEAR, Urine pH 5.5, Ur Specific [place] 1.025, Urine Protein 1+ H, Urine Ketones TRACE H, Urine Blood TRACE-INTACT, Urine Nitrate NEGATIVE, Urine Bilirubin NEGATIVE, Urine Urobilinogen 0.2, Ur Leukocyte Esterase NEGATIVE, Urine RBC 3-5, Urine WBC 5-10, Urine Renal Cells 5-10, Urine Bacteria 4+, Urine Glucose 2+ H 05/01/17 0110: Sodium 135 L, Potassium 4.6, Chloride 102, Carbon Dioxide 25, BUN 29 H, Creatinine 0.9, Estimated Creat Clear 43 L, Estimated GFR (MDRD) 60, Glucose 337 H, Calcium 9.8, Total Bilirubin 0.9, AST 31, ALT 42, Alkaline Phosphatase 185 H, Total Protein 7.5, Albumin 2.3 L, Globulin 5.2 H, Albumin/Globulin Ratio 0.4 L, WBC 13.3 H, RBC 3.62 L, Hgb 11.4 L, Hct 35.9 L, MCV 99.0 H, RDW 12.6, Plt Count 269, MPV 8.4, Gran % 91.2 H, Gran # 12.1 H, Total Counted 100, Lymphocytes % 3.5 L, Monocytes % 3.8, Eosinophils % 1.3, Basophils % 0.2, Neutrophils 90 H, Band Neutrophils 5, Lymphocytes (Manual) 5 L, Lymphocytes # 0.5 L, Monocytes # 0.5, Eosinophils # 0.2, Basophils # 0.0, Hypersegmented Polys FEW, Platelet Estimate NORMAL, Hypochromasia 1+, Macrocytosis 1+, Rouleaux 2+, PUBS MCHC 31.8, MCH 31.5 H Microbiology Date/Time Procedure - Status Source Growth 05/01 334 Anaerobic Blood Culture - CAN BLOOD Cancelled: DUPLICATE ORDER 05/01 334 Aerobic Blood Culture - CAN BLOOD Cancelled: DUPLICATE ORDER 05/01 334 Anaerobic Blood Culture - CAN BLOOD Cancelled: DUPLICATE ORDER 05/01 334 Aerobic Blood Culture - CAN BLOOD Cancelled: DUPLICATE ORDER 05/01 300 Anaerobic Blood Culture - RECD BLOOD 05/01 300 Aerobic Blood Culture - RECD BLOOD 05/01 300 Anaerobic Blood Culture - RECD BLOOD 05/01 300 Aerobic Blood Culture - RECD BLOOD 05/01 0215 Urine Culture - RES URINE CATH Plan: Assessment: 1. Atrial fibrillation, new onset with rapid ventricular response. Likely secondary to pneumonia but will check BNP to rule out recurrent congestive heart failure. Recommend continuing IV diltiazem. Will start IV digoxin. Recommend holding lisinopril to allow blood pressure to elevate to give more room for additional diltiazem as needed. Echocardiogram has been performed with preliminary report showing hyperdynamic function. 2. Dementia 3. Hypertension 4. Hyperlipidemia 5. Mild anemia Recommendations: See above. at [phone]
--- NOTE | 2017-05-02 20:51 | RADIOLOGY REPORT PS360 ---
PROCEDURE: 2-D M-mode and color Doppler study INDICATIONS FOR THE TEST: Chest pain COPD Heart Murmur Tobacco Smoking Palpitations Fatigue Syncope Edema HypertensionXDiabetes MellitusX Rheumatic Fever SOB RIVERA Obesity HyperlipidemiaX Family History HDX Additional History AF WITH RVR PATIENT INFORMATION HEIGHT: 61 WEIGHT:136 GENDER: Female B/P:145/73 2-D/M-MODE INTERPRETATION: 2-D MEASUREMENTS OBSERVED VALUES IN CMS Right Ventricular Dimension (RVDd) 1.9 Interventricular Septum (Thickness)(IVsd) 1.1 Left Ventricular Internal Dimensions(LVIDd) 2.8 Left Ventricular Posterior Wall (Thickness)(LVPWd) 1.0 Aortic Root 2.6 Aortic Cusp Separation 1.6 Left Atrial Dimensions (LAD) 4.6 2D 1.. Left atrium is mildly enlarged, left ventricle is normal size, there is borderline concentric left ventricular hypertrophy, visually estimated ejection fraction is over 65% with no obvious regional wall motion abnormality, endocardial surfaces are poorly visualized, throughout this study patient was in atrial fibrillation with rapid ventricular response. 2. The right atrium and right ventricle are normal size and contractility. 3. The aortic valve is thickened and calcified leaflet continue to display mobility. 4. The mitral valve has dense mitral calcification which extends into the anterior and posterior mitral leaflets. 5. The tricuspid valve is grossly normal. 6. The pulmonic valve is poorly visualized. 7. No significant pericardial effusion noted. DOPPLER INTERROGATION: Doppler interrogation of the aortic, mitral and tricuspid valve reveals presence of mild mitral and tricuspid regurgitation, tricuspid regurgitant jet velocity insufficient for calculation of the right ventricular systolic pressure. CONCLUSION: 1. Technically difficult study because of the patient's factor and poor acoustic windows 2. Mildly enlarged left atrium, normal left ventricular size, borderline concentric left ventricular hypertrophy, visually estimated ejection fraction over 65%, with no obvious regional wall motion abnormality, endocardial surfaces are poorly visualized, patient was in atrial fibrillation with rapid ventricular response throughout this study. 3. Thickened and calcified aortic valve without Doppler evidence of significant aortic stenosis or aortic insufficiency. 4. Mitral annular calcification, mild mitral and tricuspid regurgitation. 5. No significant pericardial effusion noted.
[2017-05-03] VITALS (16 sets, daily range): BP systolic 101–132; BP diastolic 55–82
[2017-05-03 06:05] LABS: HEMOGLOBIN 10.6 g/dL (12.2-16.2)
[2017-05-03 06:06] LABS: LYMPH # 0.7 K/mm3 (0.7-4.5); LYMPH % 5.3 % (10-50.0)
--- NOTE | 2017-05-03 07:57 | ACUTE CARE PROGRESS NOTE (QUA) ---
Progress Notes Subjective Date 05/03/17 Time 0754 Note Patient is more alert, ate some supper last night, this morning is sleeping. Events of yesterday reviewed vis--vis atrial fibrillation and now improved rate. About an hour ago patient transitioned back into normal sinus rhythm. On-call physician has stopped drip and ordered one dose of Cardizem by mouth. Patient's heart rate regular, some rhonchi in the chest. Abdomen soft, Edwards catheter draining clear yellow urine. No edema noted. Objective Findings Last VS-Temp:98.2 B/P:125/59 Pulse:67 Resp:16 SaO2:95 OXYGEN Last weight lbs:139 oz:6 K.219 Method:Bed Scales Assessment/Plan Problem List 1. Delirium 2. Senile dementia 3. Change in mental status 4. Pneumonia 5. Hyperglycemia 6. UTI (urinary tract infection) 7. Atrial fibrillation with rapid ventricular response Patient condition Improving Plan: continue current care, 1. Atrial fibrillation has now resolved. Continue by mouth Cardizem, 60 mg 3 times a day. Lisinopril has been discontinued. Continue low-dose digoxin. 2. Infectious disease issues-await urine culture results. Patient is improving based on fever curve and blood counts. 3. Weakness -PT/OT consult. Evaluate for therapy needs for transition to skilled care given her overall global weakness and decline with this illness episode. 4. Pneumonia. Improving. Continue plan as above. 5. I discussed with her daughter her CODE STATUS. Given her overall age, frailty and multiple comorbidities I think DNR status would be more appropriate and she agrees. This inpt stay is expected to cross 2 MNs from start of care Yes at 0756
--- NOTE | 2017-05-03 13:38 | ACUTE CARE PROGRESS NOTE (QUA) ---
Progress Notes Subjective Date 05/03/17 Time 1336 Note 87-year-old white female in bed in no acute distress. Heart rate is controlled. Telemetry reveals patient has returned to sinus rhythm overnight. Discussed anticoagulation with patient's daughter. She previously had been on Coumadin therapy which was discontinued at the time of her hip surgery. Patient does not have frequent falls. Nor has she had any gastrointestinal bleeding history per the daughter. Objective Findings Last VS-Temp:98.6 B/P:124/59 Pulse:80 Resp:16 SaO2:95 OXYGEN Last weight lbs:139 oz:6 K.219 Method:Bed Scales Exam General appearance: alert, awake, no acute distress Cardiovascular: regular rate & rhythm Respiratory: clear to auscultation Extremities: moves all, no peripheral edema Reviewed: medications, vital signs, lab results Assessment/Plan Problem List 1. Delirium 2. Senile dementia 3. Change in mental status 4. Pneumonia 5. Hyperglycemia 6. UTI (urinary tract infection) 7. Atrial fibrillation with rapid ventricular response Assessment/Plan: Currently in sinus rhythm on diltiazem and digoxin. CHADS-VASc score of 8 (age, female, previous CHF, diabetes, previous TIA/CVA, HTN) with previous coumadin use. Recommend restarting anticoagulation. Patient condition Stable Plan: continue current meds. Will discuss a/c with Dr. Perez to see if any reservations or known problems on coumadin in past. This inpt stay is expected to cross 2 MNs from start of care Yes at 1346
[2017-05-04] VITALS (12 sets, daily range): BP systolic 127–146; BP diastolic 61–70
[2017-05-04 06:35] LABS: HEMOGLOBIN 10.5 g/dL (12.2-16.2)
[2017-05-04 06:36] LABS: LYMPH # 0.7 K/mm3 (0.7-4.5); LYMPH % 5.5 % (10-50.0)
--- NOTE | 2017-05-04 07:30 | ACUTE CARE PROGRESS NOTE (QUA) ---
Progress Notes Subjective Date 05/04/17 Time 0728 Note 87 yo WF in bed asleep. Daughter states she talked in her sleep all night. Telemetry is sinus and controlled. Objective Findings Last VS-Temp:98.2 B/P:130/67 Pulse:84 Resp:15 SaO2:94 ROOM AIR Last weight lbs:140 oz:1 K.531 Method:Bed Scales Exam Cardiovascular: regular rate & rhythm Respiratory: clear to auscultation Reviewed: medications, vital signs, lab results Assessment/Plan Problem List 1. Delirium 2. Senile dementia 3. Change in mental status 4. Pneumonia 5. Hyperglycemia 6. UTI (urinary tract infection) 7. Atrial fibrillation with rapid ventricular response Assessment/Plan: In NSR on diltiazem and digoxin. On eliquis. Patient condition Stable Plan: continue current care This inpt stay is expected to cross 2 MNs from start of care Yes at 0730
--- NOTE | 2017-05-04 08:27 | ACUTE CARE PROGRESS NOTE (QUA) ---
Progress Notes Subjective Date 05/04/17 Time 0745 Note Patient is sleeping, awakens easily to light touch. No fevers. She continues to have a cough, unable to produce sputum Alert and oriented at baseline. Rate and rhythm regular, rate controlled. No LE edema. Pulses 2+. Anterior lung laguerre clear. Abdomen soft and nontender. Patient/family reports: feeling better Nursing reports: no complaints Objective Findings Last VS-Temp:98.2 B/P:130/67 Pulse:84 Resp:15 SaO2:94 ROOM AIR Last weight lbs:140 oz:1 K.531 Method:Bed Scales Reviewed: medications, vital signs, lab results Assessment/Plan Problem List 1. Delirium 2. Senile dementia 3. Change in mental status 4. Pneumonia 5. Hyperglycemia 6. UTI (urinary tract infection) 7. Atrial fibrillation with rapid ventricular response Patient condition Improving Plan: continue current care This inpt stay is expected to cross 2 MNs from start of care Yes Comments: Continue IV antibiotics. Continue diltiazem and digoxin, rate is well controlled. Plan for D/C to [place] tomorrow. at 0808
[2017-05-04 11:55] LABS: NEUTROPHILS 88 % (42-76)
[2017-05-05 00:21] VITALS: BP 161/72
[2017-05-05 04:41] VITALS: BP 168/65
--- NOTE | 2017-05-05 07:44 | ACUTE CARE PROGRESS NOTE (QUA) ---
Progress Notes Subjective Date 05/05/17 Time 0743 Note Patient slept well, overnight has done well, remains in sinus rhythm. Lungs have good air movement, heart rate regular. Objective Findings Last VS-Temp:97.7 B/P:168/65 Pulse:68 Resp:20 SaO2:92 ROOM AIR Last weight lbs:140 oz:1 K.531 Method:Bed Scales Assessment/Plan Problem List 1. Delirium 2. Senile dementia 3. Change in mental status 4. Pneumonia 5. Hyperglycemia 6. UTI (urinary tract infection) 7. Atrial fibrillation with rapid ventricular response Patient condition Improving Plan: continue current care, initiate discharge plan This inpt stay is expected to cross 2 MNs from start of care Yes at 0743
--- NOTE | 2017-05-05 07:47 | DISCHARGE SUMMARY STANDARD ---
See Addendum Demographics Admit date: 05/01/17 Discharge date: 05/05/17 History of present illness History of present illness 87-year-old white female with history of multi-vascular dementia with behavioral disturbances who's been well managed at home who over the past 3 or 4 days has had increasing mental status changes and some confusion with some aberrant behavior with a cough and fever. Came to the emergency department. Noted to be significantly hyperglycemic and have infiltrates on chest x-ray. Admitted to hospital for IV antibiotics for pneumonia Hospital Course Hospital Course: Patient was admitted, placed on IV antibiotics. Sputum cultures, blood cultures were nondiagnostic, x-ray did reveal infiltrate. UTI was evaluated and revealed low colony counts but no organism was identified. However, patient did well on IV antibiotics. Azithromycin and Rocephin were given and patient did well with this Unfortunately patient did have an episode of atrial fibrillation, treated with Cardizem intravenously, spontaneously converted control and was placed on by mouth diltiazem and digoxin. Tolerated this very nicely. She has been in sinus rhythm since that time. Because of her weakness, ongoing mental status change and need for skilled care rehab she'll be transferred to long-term care today. She'll be on the medications as noted in the discharge summary. Please note she' ll need to be on Omnicef 300 twice a day for another 5 days. Follow be in our long term rounds, please note that she now maintains a DNR status. Discharge diagnoses Problem List 1. Delirium 2. Senile dementia 3. Change in mental status 4. Pneumonia 5. Hyperglycemia 6. UTI (urinary tract infection) 7. Atrial fibrillation with rapid ventricular response Medications Medications: Discharge meds are as noted. Follow up Follow up in office in: 4 DAYS with: Kyle Perez MD at [id number]
[2017-05-05] MEDS ORDERED: OMNICEF 300 MG300 MG PO (07:48)
[2017-05-05] MEDS ORDERED: DILTIAZEM HYDRO90 MG PO (07:48)
[2017-05-05] MEDS ORDERED: DIGOX0.125 MG PO (07:48)
[2017-05-05] MEDS ORDERED: ELIQUIS2.5 MG PO (07:49)
[2017-05-05 08:00] VITALS: BP 133/65
[2017-05-05 08:15] VITALS: BP 128/66
== END 2017-05-05 12:40 | DRG 689 ==
LOC: ER 23:31 → 2ND 05-01 04:16
PROVIDERS: Emergency Medicine; Internal Medicine Adolescent Medicine
DX: N39.0 Urinary tract infection, site not specified (principal); J18.9 Pneumonia, unspecified organism; F01.51 Vascular dementia, unspecified severity, with behavioral disturbance; E11.65 Type 2 diabetes mellitus with hyperglycemia; I48.91 Unspecified atrial fibrillation; I10 Essential (primary) hypertension; Z79.01 Long term (current) use of anticoagulants
CPT/HCPCS: J0456